=== PATIENT | male | born 1965 | race Caucasian/White ===

== ENCOUNTER 2023-12-31 06:23 | Day surgery (SDC) | payer BC ==
[~2023-12-31] VITALS: Ht 185.4 cm; Wt 114.1 kg
[2023-12-31] VITALS (7 sets, daily range): BP systolic 131–152; BP diastolic 70–89; PULSE 70–110; TEMP 98–98.3
[~2023-12-31 06:23] MED LIST: Famotidine 20 MG TAB PO SCH; LR 1,000 ML IV SCH; Meclizine 25 MG TAB PO SCH; Metoclopramide 10 MG TAB PO SCH
[2023-12-31] MEDS ORDERED: MOBIC15 MG PO (06:57)
[2023-12-31] MEDS ORDERED: Ondansetron 4 MG/2 ML VIAL ONE (07:15)
[2023-12-31] MEDS ORDERED: dexAMETHasone 10 MG/ML VIAL ONE (07:15)
[2023-12-31] MEDS ORDERED: fentaNYL 50 MCG/ML 5 ML VIAL ONE (07:15)
[2023-12-31] MEDS ORDERED: Lidocaine PF 2% (20 MG/ML) 5 ML VIAL ONE (07:15)
[2023-12-31] MEDS ORDERED: Rocuronium 50 MG/5 ML Multi-Dose VIAL ONE (07:16)
[2023-12-31] MEDS ORDERED: Indocyanine Green 12.5 MG in Water For Injection,Sterile 2.5 ML IV SCH (07:30)
[2023-12-31] MEDS ORDERED: HYDROmorphone 1 MG/1 ML SYRINGE [PACU/SDC ONLY] IV PRN (07:30)
[2023-12-31] MEDS ORDERED: Ketorolac 15 MG/ML VIAL IV PRN (07:30)
[2023-12-31] MEDS ORDERED: fentaNYL 50 MCG/ML 1 ML SYRINGE/VIAL [PACU/SDC ONLY] IV PRN (07:30)
[2023-12-31] MEDS ORDERED: Meperidine 50 MG/ML 1 ML VIAL IV PRN (07:30)
[2023-12-31] MEDS ORDERED: hydrALAZINE 20 MG/ML 1 ML VIAL IV PRN (07:30)
[2023-12-31] MEDS ORDERED: NORCO 325 MG-51 TAB PO (08:38)
[2023-12-31] MEDS ORDERED: Ondansetron 4 MG/2 ML VIAL IV PRN (08:45)
[2023-12-31] MEDS ORDERED: Acetaminophen 325 MG TAB PO PRN (08:45)
[2023-12-31] MEDS ORDERED: Ketorolac 30 MG/ML VIAL ONE (09:50)
[2023-12-31] MEDS ORDERED: fentaNYL 50 MCG/ML 2 ML VIAL ONE (09:57)
--- NOTE | 2023-12-31 11:00 | NUR ---
RETURNS TO ROOM 8 PER CART ACCOMPANIED BY VIKA FONG AND IS AWAKE AND ALERT. IVF INFUSING. BANDAIDS X4 ON ABDOMEN CLEAN AND DRY. ABDOMEN IS SOFT AND ROUNDED. SIPPING ON SPRITE. CALL LIGHT IN REACH AND SPOUSE IN ROOM. TEMP 99.5. WARM BLANKETS HAVE BEEN ON THE RIGHT SHOULDER AND ABDOMEN D/T SHOULDER AND ABDOMEN DISCOMFORT. DENIES PAIN OR NAUSEA AT THIS TIME.
--- NOTE | 2023-12-31 11:15 | NUR ---
RESTING WITH EYES CLOSED AND NOT DISTURBED. ALLOWED TO SLEEP. SPOUSE IN ROOM.
--- NOTE | 2023-12-31 11:30 | NUR ---
TOLERATES SALTINE CRACKERS. PAIN AT 3/10 AND DOES NOT WISH TO HAVE ANY PAIN MEDICATION.
--- NOTE | 2023-12-31 11:45 | NUR ---
RESTING AND CONVERSING WITH SPOUSE. IVF INFUSING. OFFERS NO FURTHER COMPLAINTS.
--- NOTE | 2023-12-31 12:00 | NUR ---
IV TO INT AND UP AMBULATING IN THE HALLWAY. TOLERATES ACTIVITY WELL. T
--- NOTE | 2023-12-31 12:15 | NUR ---
DISMISSAL INSTRUCTIONS GIVEN AND BOTH PATIENT AND SPOUSE VERBALIZE UNDERSTANDING OF THESE. IV DISCONTINUED AND SITE IS FREE OF REDNESS.
--- NOTE | 2023-12-31 12:17 | NUR ---
PATIENT DRESSES SELF WITH MINIMAL ASSIST OF SPOUSE.
--- NOTE | 2023-12-31 12:24 | NUR ---
PATIENT WAS TAKEN TO PRIVATE VEHILCE PER WHEELCHAIR BY VIKA FONG AND ASSISTED INTO CAR WITH DISMISSAL INSTRUCTIONS IN HAND.
== END 2023-12-31 12:24 | disposition home or self-care (01) ==
LOC: SDCO 06:23
DX: K81.0 Acute cholecystitis (principal); K81.1 Chronic cholecystitis
CPT/HCPCS: J0360; J0690; J0780; J1100; J1170; J1885; J2405; J2704; J3010; J7120